=== PATIENT | male | born 1965 | race African-American/Black ===

== ENCOUNTER 2023-10-20 17:01 | Emergency (ER) | payer OTHER ==
[~2023-10-20] VITALS: Ht 180.3 cm; Wt 68.2 kg
[~2023-10-20 17:01] MED LIST: LISI-893 PO
[2023-10-20 17:06] VITALS: TEMP 100.2
[2023-10-20 17:37] LABS: COVID AG,FIA SOURCE NASAL SWAB
[2023-10-20 17:58] LABS: RAPID GROUP A STREP NEGATIVE (NEGATIVE)
[2023-10-20 18:04] LABS: INFLUENZA TYPE A NEGATIVE FOR TYPE A (NEGATIVE); INFLUENZA TYPE B NEGATIVE FOR TYPE B (NEGATIVE)
[2023-10-20 18:06] LABS: SARS-COV2 (COVID) ANTIGEN,FIA Positive (Negative)
[2023-10-20] MEDS ORDERED: IBUPROFEN 600 MG TABLET PO ONE (18:30)
[2023-10-20] MEDS ORDERED: GuaiFENesin/D-METHORPHAN [SUGAR-FREE] 200-20MG/10 ML SYRUP UDCUP PO ONE (18:30)
[2023-10-20] MEDS ORDERED: ACETAMINOPHEN 500 MG TABLET PO ONE (18:30)
[2023-10-20] MEDS ORDERED: IBUP-1554 PO (18:38)
[2023-10-20] MEDS ORDERED: GUAIFDM PO (18:38)
[2023-10-20] MEDS ORDERED: ACET-2080 PO (18:38)
[2023-10-20] MEDS ORDERED: NIRM1TAB4 PO (18:38)
[2023-10-20 18:45] VITALS: BP 144/72; PULSE 75; RESP 12
== END 2023-10-20 18:59 | disposition home or self-care (01) ==
LOC: EMS 17:02
DX: U07.1 COVID-19 (principal); J06.9 Acute upper respiratory infection, unspecified; I10 Essential (primary) hypertension
CPT/HCPCS: 87430; 87804; 99284; Z7502; Z7610